=== PATIENT | male | born 1965 | race Caucasian/White ===

== ENCOUNTER 2023-02-20 20:40 | Emergency (ER) | payer MEDICAID ==
[2023-02-20 22:59] LABS: BASOPHILS PERCENT AUTO 0.6 % (0.0-1.0); EOSINOPHILS PERCENT AUTO 4.2 % (1.0-3.0); HEMATOCRIT 48.7 % (40.0-54.0); HEMOGLOBIN 16.8 g/dL (14.0-18.0); LYMPHOCYTES PERCENT AUTO 21.4 % (20.5-50.1); MEAN CORPUSCULAR HEMOGLOBIN 29.8 pg (27.0-34.0); MEAN CORPUSCULAR HGB CONC 34.5 g/dL (33.0-35.0); MEAN CORPUSCULAR VOLUME 86.3 fL (80-100); MONOCYTES PERCENT AUTO 7.9 % (2-8); NEUTROPHILS PERCENT AUTO 65.9 % (42.2-75.2); PLATELET COUNT,PLT 154 10^3/uL (150-450); RED BLOOD CELL COUNT 5.64 10^6/uL (4.6-6.2); WHITE BLOOD CELL COUNT,WBC 8.4 10^3/uL (5.0-10.0)
[2023-02-20] MEDS ORDERED: Albuterol/Ipratropium 3.0-0.5 MG/3 ML Neb Soln NEB ONE (23:09)
[2023-02-20 23:15] LABS: INR 3.7 (0.9-1.2); PROTHROMBIN TIME 36.1 SEC (9.0-12.0)
[2023-02-20] MEDS ORDERED: Iopamidol 755 Mg/ML 100 ML Bottle IVPUSH ONE (23:17)
[2023-02-20 23:20] LABS: ALANINE AMINOTRANSFERASE,ALT 26 U/L (16-63); ALBUMIN 3.5 g/dL (3.4-5.0); ALKALINE PHOSPHATASE 84 U/L (46-116); ASPARTATE AMNIOTRANSFERASE,AST 15 U/L (15-37); BILIRUBIN TOTAL 0.5 mg/dL (0.2-1.0); BLOOD UREA NITROGEN,BUN 18 mg/dL (7-18); BUN/CREATININE RATIO 13.1 (No establ ref range); CALCIUM 8.4 mg/dL (8.5-10.1); CARBON DIOXIDE,CO2 28 mmol/L (21-32); CHLORIDE,CL 105 mmol/L (98-107); CREATININE 1.37 mg/dL (0.70-1.30); EST CRCL DRUG DOSING (CG) 55.62 mL/min; GLUCOSE RANDOM 144 mg/dL (70-99); LACTIC ACID 0.8 mmol/L (0.4-2.0); LIPASE 92 U/L (73-393); SODIUM,NA 139 mmol/L (136-145)
[2023-02-20 23:22] LABS: B-TYPE NATRIURETIC PEPTIDE,BNP 56 pg/ml (0-100)
[2023-02-20 23:25] LABS: C-REACTIVE PROTEIN < 0.2 mg/dL (0.0-0.9); ESTIMATED GFR 60 mL/min (>=60)
[2023-02-20 23:33] LABS: D-DIMER QUANTITATIVE < 100 ng/mL (0-400)
[2023-02-21] MEDS ORDERED: traMADol 50 MG Tab PO ONE (00:39)
== END 2023-02-21 02:03 | disposition home or self-care (01) ==
LOC: DL.ED 20:40
DX: R07.89 Other chest pain (principal); J44.9 Chronic obstructive pulmonary disease, unspecified; I27.20 Pulmonary hypertension, unspecified; F17.210 Nicotine dependence, cigarettes, uncomplicated
CPT/HCPCS: 36415; 71275; 80053; 83605; 83690; 83880; 84484; 85025; 85379; 85610; 85730; 86140; 93005; 99285; A9270; Q9967; 93010; 99284; J7620-GY